=== PATIENT | female | born 1985 | race Caucasian/White ===

== ENCOUNTER 2023-01-13 09:21 | Outpatient (CLI) | payer BC | END 2023-01-13 09:22 | disposition home or self-care (01) | LOC: ULT 09:21 | PROVIDERS: ATTEND Internal Medicine | DX: R10.9 Unspecified abdominal pain (principal) | CPT/HCPCS: 76700 ==

== ENCOUNTER 2023-08-18 06:01 | Day surgery (SDC) | payer BC ==
[2023-08-17 11:41] VITALS: BMI 28.7
[2023-08-18] MEDS ORDERED: PROPOFOL 200 MG/20 ML VIAL ONE (08:00)
[2023-08-18] MEDS ORDERED: Lidocaine 1% PF 5 ML VIAL ONE (08:00)
== END 2023-08-18 09:10 | disposition home or self-care (01) ==
LOC: SDC 06:01
PROVIDERS: ATTEND Internal Medicine Cardiovascular Disease
PROC: B245ZZ4 Ultrasonography of Left Heart, Transesophageal (ICD-10-PCS; principal; 2023-08-18)
DX: I33.0 Acute and subacute infective endocarditis (principal); I11.0 Hypertensive heart disease with heart failure; I50.9 Heart failure, unspecified; G93.39 Other post infection and related fatigue syndromes; E16.2 Hypoglycemia, unspecified; D86.9 Sarcoidosis, unspecified; F17.210 Nicotine dependence, cigarettes, uncomplicated; J45.909 Unspecified asthma, uncomplicated; E03.9 Hypothyroidism, unspecified; R30.0 Dysuria; R22.1 Localized swelling, mass and lump, neck; M25.551 Pain in right hip; M25.552 Pain in left hip; M25.571 Pain in right ankle and joints of right foot; M25.572 Pain in left ankle and joints of left foot; Z91.018 Allergy to other foods; Z91.09 Other allergy status, other than to drugs and biological substances; Z79.82 Long term (current) use of aspirin; Z79.899 Other long term (current) drug therapy
CPT/HCPCS: 93312; J2704

== ENCOUNTER 2023-08-25 09:30 | Outpatient (CLI) | payer BC | END 2023-08-25 09:31 | disposition home or self-care (01) | LOC: PET 09:30 | PROVIDERS: ATTEND Internal Medicine | DX: D86.9 Sarcoidosis, unspecified (principal); R61 Generalized hyperhidrosis; R22.1 Localized swelling, mass and lump, neck | CPT/HCPCS: 78815; A9552 ==